=== PATIENT | female | born 1995 ===

== ENCOUNTER 2021-02-22 12:00 | Emergency (ER) | payer OTHER, SELFPAY ==
--- NOTE | ~2021-02-22 | XR_ITS ---
EXAMINATION: XR CHEST CLINICAL INFORMATION: Covid positive. SOB. COMPARISON: None TECHNIQUE: 2 views of the chest were obtained. FINDINGS: No significant abnormality is noted involving the heart, lungs, mediastinum, bony thorax or soft tissues. XR/XR chest 2V IMPRESSION: Unremarkable chest examination.
[2021-02-22 12:38] VITALS: BP 134/89; PULSE 81; RESP 19; TEMP 36.6; O2SAT 100; BMI 23.5
[2021-02-22 13:02] LABS: COVID-19 Test Positive (Negative)
== END 2021-02-22 15:00 | disposition left against medical advice (07) ==
PROVIDERS: Physician Assistant Medical; Emergency Provider Emergency Medicine; PCP Emergency Medicine
DX: U07.1 COVID-19 (principal); R06.02 Shortness of breath
CPT/HCPCS: 71046; 87635; 99282; 99283